=== PATIENT | female | born 1935 | race African-American/Black ===

== ENCOUNTER 2018-05-27 17:46 | Emergency (ER) | payer MEDICARE, BC ==
[~2018-05-27] VITALS: Ht 154.9 cm; Wt 49.9 kg
[~2018-05-27 17:46] MED LIST: ASPI-1169 PO; ATOR20TA PO; CALC-20 PO; CYAN500T4 PO; CYCL30DR EACHEYE; ERGO500014 PO; FEBU40TA PO; HYDR-4076 PO; LOSA50TA21 PO; LOTE5DRO3 RIGHTEYE; METO-357 PO; TRAM50TA2 PO
--- NOTE | 2018-05-27 18:25 | NUR ---
pt rec'd to er c/o pain rt knee chronic pain 06/05 family a bedsdie .AWAITING EVALUATION BY ER PROVIDER.
[2018-05-27] MEDS ORDERED: HYDROCODONE/APAP 5/325MG 1 EACH TABLET PO ONE (18:30)
--- NOTE | 2018-05-27 18:45 | NUR ---
zandra cindy duong
[2018-05-27] MEDS ORDERED: HYDROCODONE/APAP 5/325MG 1 EACH TABLET ONE (18:46)
--- NOTE | 2018-05-27 19:11 | NUR ---
REPORT RECEIVED FROM SRI VIEIRA FOR PANDA.
--- NOTE | 2018-05-27 20:07 | NUR ---
PT UP FOR DISCHARGE, FAMILY LEFT. ATTEMPTING TO GET IN TOUCH WITH FAMILY TO BUILDING ENERGY CONSULTANT PT.
[2018-05-27 22:51] VITALS: BP 134/79
== END 2018-05-27 22:53 | disposition home or self-care (01) ==
LOC: ER 17:50
DX: M25.561 Pain in right knee (principal); G89.29 Other chronic pain; M54.9 Dorsalgia, unspecified; I10 Essential (primary) hypertension; K76.9 Liver disease, unspecified; M17.9 Osteoarthritis of knee, unspecified; Z79.82 Long term (current) use of aspirin
CPT/HCPCS: 73560-TC; A4606; Z7610

== ENCOUNTER 2018-05-30 17:36 | Inpatient (IN) | payer MEDICARE, BC ==
[~2018-05-30] VITALS: Ht 152.4 cm; Wt 52.6 kg
[2018-05-30] MEDS ORDERED: LIDOCAINE HCL/PF 1% 30 ML SDV ONE (17:55)
[2018-05-30 19:27] LABS: CALCIUM, SERUM 9.4 mg/dL (8.5-10.1); CARBON DIOXIDE 25 mmol/L (21-32); CHLORIDE 102 mmol/L (98-107); CREATININE 1.4 mg/dL (0.6-1.3); GLUCOSE 98 mg/dL (74-106); POTASSIUM 3.6 mmol/L (3.5-5.1); SODIUM SERUM 136 mmol/L (136-145); UREA NITROGEN, BLOOD 32 mg/dL (7-18)
[2018-05-30 19:32] LABS: ALANINE AMINOTRANSFERASE 48 U/L (12-78); ALBUMIN 2.6 g/dL (3.4-5.0); ALKALINE PHOSPHATASE 114 U/L (46-116); ASPARTATE AMINOTRANSFERASE 58 U/L (15-37); BILIRUBIN,TOTAL 0.3 mg/dL (0.2-1.0); TOTAL PROTEIN, SERUM 7.5 g/dL (6.4-8.2)
[2018-05-30 19:51] LABS: HEMATOCRIT 31 % (33-45); HEMOGLOBIN 10.3 g/dL (11.5-14.8); LYMPHOCYTES % (AUTO) 14.8 % (20.0-44.0); MEAN CORPUSCULAR HEMOGLOBIN 30 PG (26.0-33.0); MEAN CORPUSCULAR HGB CONC 33 g/dl (31.0-36.0); MEAN CORPUSCULAR VOLUME 92 fL (82-100); MONOCYTES % (AUTO) 9.8 % (2.0-12.0); NEUTROPHILS % (AUTO) 73.6 % (43.0-81.0); PLATELET COUNT (AUTO) 410 /CMM (150-450); RDW COEFFICIENT OF VARIATION 13.3 (11.5-15.0); RED BLOOD CELL COUNT(AUTO) 3.39 MIL/uL (4.0-5.2); WHITE BLOOD COUNT (AUTO) 7.2 K/uL (4.3-11.0)
[2018-05-30 19:52] LABS: BASOPHILS # (AUTO) 0.1 /CMM (0.0-0.2); BASOPHILS % (AUTO) 0.9 % (0.0-2.0); EOSINOPHILS % (AUTO) 0.9 % (0.0-6.0); LYMPHOCYTES # (AUTO) 1.1 /CMM (0.8-4.8); MONOCYTES # (AUTO) 0.7 /CMM (0.1-1.30); NEUTROPHILS # (AUTO) 5.3 /CMM (1.8-8.9)
[2018-05-30] MEDS ORDERED: IV NS 0.9% 500 ML BAG IV ONE (20:00)
[2018-05-30] MEDS ORDERED: MAGNESIUM HYDROXIDE 30 ML UDC PO PRN (20:30)
[2018-05-30] MEDS ORDERED: ACETAMINOPHEN 325 MG TABLET PO PRN (20:30)
[2018-05-30] MEDS ORDERED: MAG HYDROX/AL HYDROX/SIMETH 30 ML UDC PO PRN (20:30)
[2018-05-30] MEDS ORDERED: ONDANSETRON HCL/PF 4 MG/2 ML VIAL IVP PRN (20:30)
[2018-05-30] MEDS ORDERED: HYDR-4077 PO (20:49)
[2018-05-30 21:39] LABS: APPEARANCE,URINE CLEAR (CLEAR); BILIRUBIN,URINE NEGATIVE (NEGATIVE); BLOOD, URINE NEGATIVE Ery/uL (NEGATIVE); COLOR,URINE YELLOW (YELLOW); KETONES,URINE NEGATIVE (NEGATIVE); LEUKOCYTE ESTERASE ,URINE NEGATIVE (NEGATIVE); NITRITE, URINE NEGATIVE (NEGATIVE); PROTEIN,URINE TRACE mg/dl (NEGATIVE); UGLUCOSE NEGATIVE (NEGATIVE); UROBILINOGEN,URINE 0.2 EU/dL (0.2)
[2018-05-30 22:00] VITALS: BP 162/93
[2018-05-30 22:05] LABS: BACTERIA,URINE Rare /HPF (None Seen); RBC,URINE 0-2 /HPF (0-2); SQUAMOUS EPITHELIAL CELL,UR 0-2 /HPF (None Seen); WBC,URINE 0-2 /HPF (0-3)
[2018-05-30 22:06] LABS: MUCUS,URINE Few /LPF (None Seen); URINE AMORPHOUS URATE Few /HPF (None Seen)
[2018-05-30 23:37] VITALS: BP 162/93
[2018-05-31] MEDS ORDERED: CEFTRIAXONE 1 G VIAL ONE (01:25)
[2018-05-31] MEDS: IV NS 0.9% 1,000 ML IV SCH ×2 (01:27→21:24)
[2018-05-31] MEDS: CEFTRIAXONE 1 G in IV NS 0.9% 50 ML IV SCH (01:40)
[2018-05-31] MEDS ORDERED: VANCOMYCIN 1 GM in IV D5W 250 ML IV SCH (04:30)
[2018-05-31] MEDS ORDERED: VANCOMYCIN 1 GM VIAL ONE (04:39)
[2018-05-31] MEDS: HYDROCODONE/APAP 5/325MG 1 EACH TABLET PO PRN ×2 (04:51→20:33)
[2018-05-31 07:03] LABS: IRON, SERUM 23 ug/dl (50-175); TOTAL IRON BINDING CAPACITY 116 ug/dl (250-450)
[2018-05-31 08:00] VITALS: BP 154/67
[2018-05-31] MEDS: CYANOCOBALAMIN 500 MCG TABLET PO SCH (08:25)
[2018-05-31] MEDS: DOCUSATE SODIUM 100 MG CAPSULE PO SCH ×2 (08:25→17:16)
[2018-05-31] MEDS: PANTOPRAZOLE 40 MG VIAL IV SCH (08:26)
[2018-05-31] MEDS: hydrALAZINE HCL 50 MG TABLET PO SCH ×3 (08:26→17:16)
[2018-05-31] MEDS: CALCIUM CARB 600MG /VIT D 1 EACH TABLET PO SCH (08:26)
[2018-05-31] MEDS: METOPROLOL SUCCINATE 50 MG TAB.SR.24H PO SCH (08:26)
[2018-05-31] MEDS: LOSARTAN POTASSIUM 50 MG TABLET PO SCH (08:26)
[2018-05-31] MEDS: TRAMADOL HCL 50 MG TABLET PO SCH ×2 (08:28→17:17)
[2018-05-31 08:31] LABS: CALCIUM, SERUM 9.1 mg/dL (8.5-10.1); CARBON DIOXIDE 22 mmol/L (21-32); CHLORIDE 105 mmol/L (98-107); CREATININE 1.3 mg/dL (0.6-1.3); GLUCOSE 136 mg/dL (74-106); POTASSIUM 3.4 mmol/L (3.5-5.1); SODIUM SERUM 137 mmol/L (136-145); UREA NITROGEN, BLOOD 22 mg/dL (7-18)
[2018-05-31] MEDS ORDERED: BRIN8DRO RIGHTEYE (08:56)
[2018-05-31] MEDS ORDERED: ZIOPTAN RIGHTEYE (08:56)
[2018-05-31] MEDS ORDERED: BRIM5DRO2 RIGHTEYE (08:56)
[2018-05-31] MEDS ORDERED: Medication Not On Formulary EA (Atorvastatin Calcium (Lipitor) 20 MG) PO SCH (09:00)
[2018-05-31] MEDS: LOTEMAX RIGHTEYE SCH (09:00)
[2018-05-31] MEDS ORDERED: Medication Not On Formulary EA (Cyclosporine (Restasis) 1 DROP) EACHEYE SCH (09:00)
[2018-05-31] MEDS ORDERED: FEE PK DOSING 1 MIN EA MC ONE (11:52)
[2018-05-31] MEDS ORDERED: POTASSIUM CHLORIDE 20 MEQ TAB.PRT.SR PO SCH (12:00)
[2018-05-31 16:00] VITALS: BP 140/73
[2018-05-31] MEDS: LACTOBACILLUS RHAMNOSUS GG 1 EACH CAP.SPRINK PO SCH (17:16)
[2018-05-31] MEDS: ASPIRIN 81 MG TAB.CHEW PO SCH (17:16)
[2018-05-31] MEDS: VANCOMYCIN 1 GM in IV D5W 250 ML IV SCH (17:19)
[2018-05-31 20:00] VITALS: BP 140/67
[2018-05-31] MEDS: SIMVASTATIN 40 MG TABLET PO SCH (22:58)
[2018-06-01] MEDS: CEFTRIAXONE 1 G in IV NS 0.9% 50 ML IV SCH (00:48)
[2018-06-01] MEDS: HYDROCODONE/APAP 5/325MG 1 EACH TABLET PO PRN (06:14)
[2018-06-01 06:29] LABS: BASOPHILS % (AUTO) 0.5 % (0.0-2.0); EOSINOPHILS % (AUTO) 2.6 % (0.0-6.0); HEMATOCRIT 30 % (33-45); HEMOGLOBIN 9.9 g/dL (11.5-14.8); LYMPHOCYTES # (AUTO) 1.1 /CMM (0.8-4.8); LYMPHOCYTES % (AUTO) 17.1 % (20.0-44.0); MEAN CORPUSCULAR HEMOGLOBIN 31 PG (26.0-33.0); MEAN CORPUSCULAR HGB CONC 33 g/dl (31.0-36.0); MEAN CORPUSCULAR VOLUME 93 fL (82-100); MONOCYTES # (AUTO) 0.7 /CMM (0.1-1.30); MONOCYTES % (AUTO) 11.2 % (2.0-12.0); NEUTROPHILS # (AUTO) 4.6 /CMM (1.8-8.9); NEUTROPHILS % (AUTO) 68.6 % (43.0-81.0); PLATELET COUNT (AUTO) 377 /CMM (150-450); RDW COEFFICIENT OF VARIATION 13.6 (11.5-15.0); RED BLOOD CELL COUNT(AUTO) 3.23 MIL/uL (4.0-5.2); WHITE BLOOD COUNT (AUTO) 6.6 K/uL (4.3-11.0)
[2018-06-01 07:04] LABS: CHOLESTEROL 128 mg/dL (<200); HDL CHOLESTEROL 37 mg/dL (40-60); LDL 76 mg/dL (0-99); THYROID STIMULATING HORMONE 2.297 uIU/mL (0.358-3.74); TRIGLYCERIDES 48 mg/dL (30-150)
[2018-06-01 07:10] LABS: CARBON DIOXIDE 22 mmol/L (21-32); CHLORIDE 106 mmol/L (98-107); CREATININE 1.1 mg/dL (0.6-1.3); GLUCOSE 89 mg/dL (74-106); MAGNESIUM 1.9 mg/dL (1.8-2.4); PHOSPHORUS 3.7 mg/dL (2.5-4.9); POTASSIUM 3.8 mmol/L (3.5-5.1); SODIUM SERUM 137 mmol/L (136-145); UREA NITROGEN, BLOOD 15 mg/dL (7-18)
[2018-06-01 08:00] VITALS: BP 130/59
[2018-06-01] MEDS: PANTOPRAZOLE 40 MG VIAL IV SCH (08:46)
[2018-06-01] MEDS: CALCIUM CARB 600MG /VIT D 1 EACH TABLET PO SCH (08:46)
[2018-06-01] MEDS: CYANOCOBALAMIN 500 MCG TABLET PO SCH (08:47)
[2018-06-01] MEDS: DOCUSATE SODIUM 100 MG CAPSULE PO SCH ×2 (08:47→18:09)
[2018-06-01] MEDS: TRAMADOL HCL 50 MG TABLET PO SCH ×2 (08:47→18:09)
[2018-06-01] MEDS: LOSARTAN POTASSIUM 50 MG TABLET PO SCH (08:47)
[2018-06-01] MEDS: LACTOBACILLUS RHAMNOSUS GG 1 EACH CAP.SPRINK PO SCH ×2 (08:47→18:08)
[2018-06-01] MEDS: METOPROLOL SUCCINATE 50 MG TAB.SR.24H PO SCH (08:48)
[2018-06-01] MEDS: hydrALAZINE HCL 50 MG TABLET PO SCH ×3 (08:48→18:08)
[2018-06-01] MEDS: LOTEMAX RIGHTEYE SCH (08:52)
[2018-06-01 16:00] VITALS: BP 134/64
[2018-06-01] MEDS: BRIMONIDINE TARTRATE RIGHTEYE SCH (18:07)
[2018-06-01] MEDS: TIMOLOL RIGHTEYE SCH (18:07)
[2018-06-01] MEDS: Brinzolamide/Brimonid Tart (Simbrinza 1%-0.2% Eye Drops) EACHEYE SCH (18:07)
[2018-06-01] MEDS: VANCOMYCIN 1 GM in IV D5W 250 ML IV SCH (18:07)
[2018-06-01] MEDS: ASPIRIN 81 MG TAB.CHEW PO SCH (18:10)
[2018-06-01 20:00] VITALS: BP 120/58
[2018-06-01] MEDS: SIMVASTATIN 40 MG TABLET PO SCH (21:45)
[2018-06-01] MEDS: IV NS 0.9% 1,000 ML IV SCH (21:47)
[2018-06-01] MEDS ORDERED: LATANOPROST EYE DROP 0.005% 2.5 ML BOTTLE RIGHTEYE SCH (22:00)
[2018-06-02] MEDS: CEFTRIAXONE 1 G in IV NS 0.9% 50 ML IV SCH (00:07)
[2018-06-02 06:54] LABS: CALCIUM, SERUM 8.8 mg/dL (8.5-10.1); CARBON DIOXIDE 21 mmol/L (21-32); CHLORIDE 107 mmol/L (98-107); CREATININE 1.3 mg/dL (0.6-1.3); GLUCOSE 91 mg/dL (74-106); POTASSIUM 3.7 mmol/L (3.5-5.1); SODIUM SERUM 137 mmol/L (136-145); UREA NITROGEN, BLOOD 11 mg/dL (7-18)
[2018-06-02 08:00] VITALS: BP 150/69
[2018-06-02] MEDS: CYANOCOBALAMIN 500 MCG TABLET PO SCH (08:04)
[2018-06-02] MEDS: TRAMADOL HCL 50 MG TABLET PO SCH ×2 (08:05→16:40)
[2018-06-02] MEDS: LACTOBACILLUS RHAMNOSUS GG 1 EACH CAP.SPRINK PO SCH ×2 (08:06→16:39)
[2018-06-02] MEDS: DOCUSATE SODIUM 100 MG CAPSULE PO SCH ×2 (08:06→16:39)
[2018-06-02] MEDS: PANTOPRAZOLE 40 MG VIAL IV SCH (08:06)
[2018-06-02] MEDS: hydrALAZINE HCL 50 MG TABLET PO SCH ×3 (08:07→16:56)
[2018-06-02] MEDS: LOSARTAN POTASSIUM 50 MG TABLET PO SCH (08:07)
[2018-06-02] MEDS: METOPROLOL SUCCINATE 50 MG TAB.SR.24H PO SCH (08:07)
[2018-06-02] MEDS: CALCIUM CARB 600MG /VIT D 1 EACH TABLET PO SCH (08:07)
[2018-06-02] MEDS: TIMOLOL RIGHTEYE SCH ×2 (08:16→16:42)
[2018-06-02] MEDS: BRIMONIDINE TARTRATE RIGHTEYE SCH ×2 (08:16→16:42)
[2018-06-02] MEDS: Brinzolamide/Brimonid Tart (Simbrinza 1%-0.2% Eye Drops) EACHEYE SCH ×3 (08:17→16:56)
[2018-06-02] MEDS: LOTEMAX RIGHTEYE SCH (08:18)
[2018-06-02] MEDS: IV NS 0.9% 1,000 ML IV SCH (11:49)
[2018-06-02 16:56] VITALS: BP 122/67
[2018-06-29] MEDS ORDERED: ERGOCALCIFEROL (VITAMIN D 2) 50,000 UNIT CAPSULE PO SCH (09:00)
== END 2018-06-02 18:27 | DRG 564 ==
LOC: ER 17:38 → MED 20:40
PROVIDERS: ADMIT Registered Nurse; ATTEND Registered Nurse
DX: M25.461 Effusion, right knee (principal); N17.0 Acute kidney failure with tubular necrosis; T76.91XA Unspecified adult maltreatment, suspected, initial encounter; E78.5 Hyperlipidemia, unspecified; G89.29 Other chronic pain; I12.9 Hypertensive chronic kidney disease with stage 1 through stage 4 chronic kidney disease, or unspecified chronic kidney disease; N18.9 Chronic kidney disease, unspecified; D63.8 Anemia in other chronic diseases classified elsewhere; D47.3 Essential (hemorrhagic) thrombocythemia; I25.10 Atherosclerotic heart disease of native coronary artery without angina pectoris; H40.9 Unspecified glaucoma; M41.9 Scoliosis, unspecified; M54.9 Dorsalgia, unspecified; R53.1 Weakness; E86.9 Volume depletion, unspecified; K76.9 Liver disease, unspecified; M17.11 Unilateral primary osteoarthritis, right knee; E87.6 Hypokalemia
CPT/HCPCS: 36415; 73700-TC; 73721-TC; 80048-TC; 80053-TC; 80061-TC; 81000-TC; 83540-TC; 83605-TC; 83735-TC; 84100-TC; 84443-TC; 84550-TC; 85025-TC; 85652-TC; 86140-TC; 87040-TC; 87070-TC; 87081-TC; 89051-TC; 89060-TC; 92611-TC; A4216; A4606; A6402; C9113; J0696; J3370; J3490; J7030; J7040; J7060; Z7610

== ENCOUNTER 2018-07-06 11:05 | Emergency (ER) | payer MEDICARE, BC ==
[~2018-07-06] VITALS: Ht 152.4 cm; Wt 50.8 kg
[~2018-07-06 11:05] MED LIST changes: +BRIM5DRO2 RIGHTEYE; +BRIN8DRO RIGHTEYE; -FEBU40TA PO; -HYDR-4076 PO; +HYDR-4077 PO; +ZIOPTAN RIGHTEYE
--- NOTE | 2018-07-06 11:25 | NUR ---
DR LOWERY AT BEDSIDE FOR EVAL.
--- NOTE | 2018-07-06 11:26 | NUR ---
PT BIB FAMILY TO ER BED 01 C/O ON AND OFF NECK AND L SIDED CHEST WALL PAIN. PER PT, PAIN IS BEEN GOING ON FOR DAYS NOW. DENIES FALL. R KNEE SWELLING NOTED. PER FAMILY PT WAS GIVEN GELSYN INJECTION LAST MONDAY. GOWNED AND PLACED ON MONITOR. VSS. AWAITING MD CALLE.
[2018-07-06 12:00] LABS: BASOPHILS # (AUTO) 0.1 /CMM (0.0-0.2); BASOPHILS % (AUTO) 0.9 % (0.0-2.0); EOSINOPHILS % (AUTO) 0.8 % (0.0-6.0); HEMATOCRIT 35 % (33-45); HEMOGLOBIN 11.5 g/dL (11.5-14.8); LYMPHOCYTES # (AUTO) 0.9 /CMM (0.8-4.8); LYMPHOCYTES % (AUTO) 8.6 % (20.0-44.0); MEAN CORPUSCULAR HEMOGLOBIN 29 PG (26.0-33.0); MEAN CORPUSCULAR HGB CONC 33 g/dl (31.0-36.0); MEAN CORPUSCULAR VOLUME 89 fL (82-100); MONOCYTES # (AUTO) 0.3 /CMM (0.1-1.30); MONOCYTES % (AUTO) 3.1 % (2.0-12.0); NEUTROPHILS # (AUTO) 8.8 /CMM (1.8-8.9); NEUTROPHILS % (AUTO) 86.6 % (43.0-81.0); PLATELET COUNT (AUTO) 497 /CMM (150-450); RDW COEFFICIENT OF VARIATION 13.4 (11.5-15.0); WHITE BLOOD COUNT (AUTO) 10.2 K/uL (4.3-11.0)
[2018-07-06 12:10] LABS: CALCIUM, SERUM 10.1 mg/dL (8.5-10.1); CARBON DIOXIDE 27 mmol/L (21-32); CHLORIDE 96 mmol/L (98-107); CREATININE 1.2 mg/dL (0.6-1.3); GLUCOSE 93 mg/dL (74-106); INR 1.02 (0.85-1.15); POTASSIUM 4.4 mmol/L (3.5-5.1); SODIUM SERUM 130 mmol/L (136-145); UREA NITROGEN, BLOOD 22 mg/dL (7-18)
[2018-07-06 12:24] LABS: ALANINE AMINOTRANSFERASE 28 U/L (12-78); ALBUMIN 2.7 g/dL (3.4-5.0); ALKALINE PHOSPHATASE 117 U/L (46-116); ASPARTATE AMINOTRANSFERASE 32 U/L (15-37); BILIRUBIN,DIRECT 0.1 mg/dL (0.0-0.2); BILIRUBIN,TOTAL 0.5 mg/dL (0.2-1.0); TOTAL PROTEIN, SERUM 8.2 g/dL (6.4-8.2)
[2018-07-06 12:28] LABS: TROPONIN I < 0.017 ng/mL (0.00-0.056)
[2018-07-06] MEDS ORDERED: ACETAMINOPHEN ES 500 MG TABLET ONE (12:49)
--- NOTE | 2018-07-06 13:23 | NUR ---
MARKED FOR D/C BACK TO [facility] BUT DAUGHTER WANTS HER TO GO SOMEWHERE ELSE. HODAN DE SANTIAGO CALLED FOR ASSISTANCE, ETA [phone]
--- NOTE | 2018-07-06 13:30 | NUR ---
LUIS ALFREDO received a call from ED CRN Silke stating that pt. is from [facility], however pt's daughter does not want pt. to go back to [facility] but wants pt. to go to [facility]. LUIS ALFREDO met with correctional case records supervisor Angie and pt's daughter to discuss change of placement. district sales manager will assist pt's daughter with possible [facility] if accepted. LUIS ALFREDO updated [facility]ouard stating that correctional case records supervisor Angie will follow up with him regarding discharge plan.
--- NOTE | 2018-07-06 16:36 | NUR ---
REPORT GIVEN TO SRI MALONEY CHARGE AT [facility].
--- NOTE | 2018-07-06 16:38 | NUR ---
WAITING FOR TRANSPORT ARRANGED BY LAMIN RV REPAIRER.
[2018-07-06 17:53] VITALS: BP 137/75
--- NOTE | 2018-07-06 17:53 | NUR ---
Patient discharged to [facility] in stable condition. Written and verbal after care instructions given. Patient verbalizes understanding of instruction.IV removed. Catheter intact and site benign. Pressure and 4x4 applied to site. No bleeding noted.
== END 2018-07-06 17:54 ==
LOC: ER 11:06
DX: M13.861 Other specified arthritis, right knee (principal); G89.29 Other chronic pain; M54.9 Dorsalgia, unspecified; M41.9 Scoliosis, unspecified; I10 Essential (primary) hypertension; E78.5 Hyperlipidemia, unspecified; Z79.82 Long term (current) use of aspirin
CPT/HCPCS: 36415; 71045; 80048; 80076; 84484; 85025; 85730; 93005; 99285; A4606; Z7610

== ENCOUNTER 2018-07-24 12:37 | Inpatient (IN) | payer MEDICARE, BC ==
[2018-07-24] VITALS (12 sets, daily range): BP systolic 95–152; BP diastolic 16–75
[~2018-07-24] VITALS: Ht 157.5 cm; Wt 55.8 kg
[2018-07-24] MEDS ORDERED: IV NS 0.9% 500 ML BAG IV ONE (13:00)
[2018-07-24] MEDS ORDERED: PANTOPRAZOLE 40 MG VIAL IV ONE (13:00)
[2018-07-24] MEDS ORDERED: IV NS 0.9% 1,000 ML BAG IV ONE (13:00)
--- NOTE | 2018-07-24 13:15 | NUR ---
[facility] FROM [facility] FOR COFFEE GROUND EMESIS AND BLACK STOOL TODAY @ 11 AM. AAOX2. VSS. DENIES CP, SOB, DIZZINESS, LIEBERMAN, N/V/D @ THIS TIME. WILL CONT TO MONITOR.
[2018-07-24 13:26] LABS: BASOPHILS # (AUTO) 0.1 /CMM (0.0-0.2); BASOPHILS % (AUTO) 0.7 % (0.0-2.0); EOSINOPHILS % (AUTO) 1.7 % (0.0-6.0); HEMATOCRIT 22 % (33-45); HEMOGLOBIN 7.3 g/dL (11.5-14.8); LYMPHOCYTES % (AUTO) 10.8 % (20.0-44.0); MEAN CORPUSCULAR HEMOGLOBIN 29 PG (26.0-33.0); MEAN CORPUSCULAR HGB CONC 33 g/dl (31.0-36.0); MEAN CORPUSCULAR VOLUME 90 fL (82-100); MONOCYTES # (AUTO) 0.3 /CMM (0.1-1.30); MONOCYTES % (AUTO) 3.7 % (2.0-12.0); NEUTROPHILS # (AUTO) 7.4 /CMM (1.8-8.9); NEUTROPHILS % (AUTO) 83.1 % (43.0-81.0); PLATELET COUNT (AUTO) 519 /CMM (150-450); RED BLOOD CELL COUNT(AUTO) 2.49 MIL/uL (4.0-5.2)
[2018-07-24 13:39] LABS: CALCIUM, SERUM 9.9 mg/dL (8.5-10.1); CARBON DIOXIDE 24 mmol/L (21-32); CHLORIDE 103 mmol/L (98-107); CREATININE 1.5 mg/dL (0.6-1.3); GLUCOSE 92 mg/dL (74-106); POTASSIUM 4.4 mmol/L (3.5-5.1); SODIUM SERUM 134 mmol/L (136-145); UREA NITROGEN, BLOOD 59 mg/dL (7-18)
[2018-07-24 13:45] LABS: ALANINE AMINOTRANSFERASE 37 U/L (12-78); ALBUMIN 2.5 g/dL (3.4-5.0); ALKALINE PHOSPHATASE 88 U/L (46-116); ASPARTATE AMINOTRANSFERASE 28 U/L (15-37); BILIRUBIN,DIRECT 0.1 mg/dL (0.0-0.2); BILIRUBIN,TOTAL 0.4 mg/dL (0.2-1.0); LIPASE 336 U/L (73-393); TOTAL PROTEIN, SERUM 6.4 g/dL (6.4-8.2)
[2018-07-24 13:46] LABS: INR 1.05 (0.85-1.15)
[2018-07-24 13:47] LABS: TROPONIN I < 0.017 ng/mL (0.00-0.056)
[2018-07-24] MEDS ORDERED: PANTOPRAZOLE 40 MG VIAL ONE (13:50)
[2018-07-24] MEDS ORDERED: IV NS 0.9% 1,000 ML IV PRN (14:40)
[2018-07-24] MEDS ORDERED: TRAM50TA2 PO (14:44)
[2018-07-24] MEDS ORDERED: MAG HYDROX/AL HYDROX/SIMETH 30 ML UDC PO PRN (15:00)
[2018-07-24] MEDS ORDERED: HYDROCODONE/APAP 5/325MG 1 EACH TABLET PO PRN (15:00)
[2018-07-24] MEDS ORDERED: MAGNESIUM HYDROXIDE 30 ML UDC PO PRN (15:00)
[2018-07-24] MEDS ORDERED: Z GUARD REMEDY 2 OZ OINT TP PRN (15:00)
--- NOTE | 2018-07-24 15:00 | NUR ---
PT STABLE, DENIES N/V/D, CP, SOB, DIZZINESS @ THIS TIME. WILL CONT TO MONITOR.
--- NOTE | 2018-07-24 16:19 | NUR ---
REPORT GIVEN TO SRI GONCALVES. PT WILL BE TRANSPORTED TO [facility] FOR CONT OF CARE.
--- NOTE | 2018-07-24 16:55 | NUR ---
SODA FOUNTAIN MANAGER ADMITTING NOTES REPORT GIVEN BY Marga MENDENHALL. PT ADMITTED TO UNIT AT 1635 VIA GURNEY ACCOMPANIED BY Marga NURSE ABDIRASHID AND PT'S DAUGHTER. TRANSFERRED PT GENTLY TO BED. PT IS A/O X2 AND RESPONSIVE TO TACTILE AND VERBAL STIMULI, NO C/O PAIN AT THIS TIME. PT AND FAMILY ORIENTED TO UNIT. PT WITH DX OF GI BLEED. V/S TAKEN AND RECORDED. PT PLACED ON 02 VIA N/C @ 2LPM, BREATHING EVEN AND UNLABORED. PT PLACED ON TELE-MONITORING WITH CURRENT READING OF SINUS RHYTHM WITH HR OF 75, NO CARDIAC DISTRESS NOTED. SKIN ASSESSMENT DONE. PT WITH INTACT WARM, DRY AND PALE SKIN. IV ACCESS ON LEFT HAND G # 18 INTACT AND PATENT. ABDOMEN SOFT,NON TENDER AND NON- DISTENDED. LUNGS ARE CLEAR ON AUSCULTATION. SAFETY MEASURES INITIATED. BED PLACED ON LOW/LOCKED POSITION WITH SIDE-RAILS UP X2. CALL LIGHT IN REACH. RECEIVED CALL FROM PHARMACY TO ASK FAMILY TO PROVIDE ALL EYE DROP MEDICATIONS THAT PT IS TAKING AND DAUGHTER SAID THAT SHE WILL GO TO THE SNF AND TAKE THEM AND BRING IT TOMORROW. WILL CONTINUE TO MONITOR AND ASSESS PT.
[2018-07-24] MEDS: hydrALAZINE HCL 50 MG TABLET PO SCH (17:00)
[2018-07-24] MEDS ORDERED: PANTOPRAZOLE 40 MG VIAL IV SCH (17:00)
[2018-07-24] MEDS ORDERED: TRAMADOL HCL 50 MG TABLET PO SCH (17:00)
[2018-07-24] MEDS: ONDANSETRON HCL/PF 4 MG/2 ML VIAL IVP PRN (17:22)
--- NOTE | 2018-07-24 17:55 | NUR ---
RN NOTES PATIENT C/O NAUSEA AND VOMITED LARGE AMOUNT FRESH BLOODY EMESIS WITH SOME SMALL CLOTS NOTED. HOB KEPT ELEVATED. ORAL CARE DONE. PROTONIX 40MG IVP AND ZOFRAN 4MG IVP ADMINISTERED. V/S TAKEN: 144/75MMHG, P 90, R 18, T 99F AND SP02 98%. PT MAINTAINED ON 02 VIA N/C AT 2LPM. ANTONIO MILLS MADE AWARE WITH ORDER TO DO STAT CBC. WILL CARRY OUT ORDER.
--- NOTE | 2018-07-24 18:50 | NUR ---
RN NOTES PT HAD BLACK COLORED STOOL, SPECIMEN COLLECTED. CALLED LABORATORY TWICE FOR STAT CBC BUT UNTIL NOW THEY HAVEN'T COME TO TAKE IT. WILL CALL AGAIN AND FOLLOW-UP.
--- NOTE | 2018-07-24 19:15 | NUR ---
SUPERVISOR STONE CLOSING NOTES PATIENT AWAKE AND LYING COMFORTABLY AT MODERATE HIGH BACKREST POSITION. ALERT AND RESPONSIVE TO TACTILE AND VERBAL STIMULI. NO FURTHER VOMITING NOTED. CREDIT INTERN JUST CAME AND WITHDRAW BLOOD FOR STAT CBC AND PICK-UP STOOL SPECIMEN. WILL ENDORSE TO [facility] SHIFT NURSE TO F/U RESULTS. PT ON 02 VIA N/C AT 2LPM, BREATHING EVEN WITH NO ACUTE RESPIRATORY DISTRESS NOTED. CARDIAC MONITORING SHOWS SR WITH HR OF 75. IVF OF NS @ 75ML/HR INFUSING TO LEFT HAND, NO S/S OF INFILTRATION NOTED. ALL SAFETY MEASURES KEPT IN PLACE. CALL LIGHT WITHIN REACH. WILL ENDORSE TO PEANUT SORTER NURSE FOR PANDA.
[2018-07-24 19:16] LABS: BASOPHILS % (AUTO) 0.3 % (0.0-2.0); EOSINOPHILS % (AUTO) 0.8 % (0.0-6.0); LYMPHOCYTES # (AUTO) 1.9 /CMM (0.8-4.8); LYMPHOCYTES % (AUTO) 15.3 % (20.0-44.0); MEAN CORPUSCULAR HEMOGLOBIN 30 PG (26.0-33.0); MEAN CORPUSCULAR HGB CONC 32 g/dl (31.0-36.0); MEAN CORPUSCULAR VOLUME 92 fL (82-100); MONOCYTES # (AUTO) 0.6 /CMM (0.1-1.30); MONOCYTES % (AUTO) 5.2 % (2.0-12.0); NEUTROPHILS # (AUTO) 9.5 /CMM (1.8-8.9); NEUTROPHILS % (AUTO) 78.4 % (43.0-81.0); PLATELET COUNT (AUTO) 386 /CMM (150-450); RDW COEFFICIENT OF VARIATION 15.1 (11.5-15.0); WHITE BLOOD COUNT (AUTO) 12.2 K/uL (4.3-11.0)
[2018-07-24 19:18] LABS: RED BLOOD CELL COUNT(AUTO) 1.62 MIL/uL (4.0-5.2)
[2018-07-24 19:21] LABS: HEMATOCRIT 15 % (33-45); HEMOGLOBIN 4.8 g/dL (11.5-14.8)
--- NOTE | 2018-07-24 19:24 | NUR ---
INSPECTOR SCREEN PRINTING INITIAL NOTES Received a call from lab that the patient has critical values of Hgb of 4.8 and Hct of 15. ANTONIO Garrido informed and came to see and assessed the patient. While in the room, patient spat out one big chunk of blood clot. V/S checked; BP- 93/63, HR- 64, RR-18, T-98.2, SPO2 of 98% at 4L via NC. ANTONIO Garrido at bedside stated that patient needs to be transferred to ICU and will make orders. Charge nurse made aware.
[2018-07-24 20:03] LABS: LYMPHOCYTES % (MANUAL) 12 % (16-48); MONOCYTES % (MANUAL) 5 % (0-11.0); NEUTROPHILS % (MANUAL) 83 (42-76)
--- NOTE | 2018-07-24 20:05 | NUR ---
RN NOTES Daughter Ashley called to obtain blood transfusion consent. Signed and witnessed with charge nurse Maggie. Called ICU and report given to charge nurse Cleopatra Moore
--- NOTE | 2018-07-24 20:50 | NUR ---
ICU/RN-RECEIVED PT. FROM 3LADORA TELE BY BED PER ACLS PROTOCOL. FOR MANAGEMENT OF GI BLEED. -4.07/11. PT. TO RECEIVED 3 UNITS OF PRBC . NURSING FOCUS:VOLUME DEFICIT R/T GI BLEED. ROUTINE ICU ADMISSION CARE INITIATED. PT. IS ASLEEP, AROUSABLE, ORIENTED TO NAME , ABLE TO ANSWER SIMPLE QUESTIONS W/ A YES OR NO. DENIES PAIN OR SIDCONMFORT. WILL MONITOR CLOSELY PER PROTOCOL. PT. IS A FULL CODE.
--- NOTE | 2018-07-24 20:50 | NUR ---
RN NOTES Patient transferred to ICU room number [id number]
--- NOTE | 2018-07-24 21:38 | NUR ---
ICU/RN-FIRST UNIT OF PRBC TRANSFUSED PER PROTOCOL. WILL CONTINUE TO MONITOR FOR S/S OF BT REACTION.
--- NOTE | 2018-07-24 22:15 | NUR ---
ICU/RN- NO ACTIVE BLEEDING NOTED AT THIS TIME, VSS. REPORT GIVEN TO SRI POTTER. WILL CONTINUE TO MONITOR PT. PER ACLS PROTOCOL.
--- NOTE | 2018-07-24 22:30 | NUR ---
RN/ICU NOTES: RECEIVED REPORT FROM CHARGE NURSE GENIE. FIRST UNIT OF PRBC GOING. PT. TOLERATED WELL.
[2018-07-24 22:33] LABS: OCCULT BLOOD STOOL POSITIVE (NEGATIVE)
[2018-07-24] MEDS ORDERED: METRONIDAZOLE 500MG/ NS 100ML 100 ML IV ONE (22:37)
[2018-07-24] MEDS ORDERED: VANCOMYCIN 1 GM VIAL ONE (22:37)
[2018-07-24] MEDS ORDERED: PIPERACILLIN /TAZOBACTAM 2.25 G VIAL IV ONE (22:38)
[2018-07-24] MEDS: METRONIDAZOLE 500MG/ NS 100ML 500 MG in PREMIX 1 EA IV SCH (22:46)
[2018-07-24] MEDS ORDERED: VANCOMYCIN 1 GM in IV D5W 250ml IV ONE (23:00)
[2018-07-25] VITALS (47 sets, daily range): BP systolic 89–169; BP diastolic 38–87
--- NOTE | 2018-07-25 00:25 | NUR ---
RN/ICU NOTES: SECOND UNIT OF BLOOD TRANSFUSION STARTED.
--- NOTE | 2018-07-25 03:30 | NUR ---
RN/ICU NOTES: 3RD AND FINAL UNIT OF BLOOD STARTED. PT. TOLERATED WELL. WILL CONTINUE TO MONITOR.
[2018-07-25] MEDS ORDERED: PIPERACILLIN /TAZOBACTAM 2.25 G VIAL IV ONE (03:55)
[2018-07-25] MEDS ORDERED: METRONIDAZOLE 500MG/ NS 100ML 100 ML IV ONE (04:44)
[2018-07-25] MEDS: METRONIDAZOLE 500MG/ NS 100ML 500 MG in PREMIX 1 EA IV SCH ×3 (04:49→21:26)
[2018-07-25] MEDS: PIPERACILLIN /TAZOBACTAM 2.25 G in IV D5W 50 ML IV SCH ×6 (05:40→23:06)
--- NOTE | 2018-07-25 06:40 | NUR ---
RN/ICU NOTES: 3 RD UNIT OF BLOOD TRANSFUSION FINISHED AND PT. TOLERATED WELL. PT. HAD X 2 EPISODES OF TARRY LOOSE STOOL.
[2018-07-25] MEDS ORDERED: FEE PK DOSING 1 MIN EA MC ONE (07:08)
--- NOTE | 2018-07-25 07:19 | NUR ---
RN/ICU NOTES: REPORT GIVEN TO NEXT SHIFT NURSE FOR PANDA.
[2018-07-25] MEDS ORDERED: ANESTHESIA TRAY IN PYXIS 1 EA TRAY MC ONE (07:33)
[2018-07-25 07:49] LABS: CALCIUM, SERUM 8.3 mg/dL (8.5-10.1); CARBON DIOXIDE 19 mmol/L (21-32); CHLORIDE 110 mmol/L (98-107); CREATININE 1.6 mg/dL (0.6-1.3); GLUCOSE 109 mg/dL (74-106); MAGNESIUM 1.8 mg/dL (1.8-2.4); PHOSPHORUS 4.8 mg/dL (2.5-4.9); POTASSIUM 4.6 mmol/L (3.5-5.1); SODIUM SERUM 140 mmol/L (136-145); UREA NITROGEN, BLOOD 76 mg/dL (7-18)
[2018-07-25 07:50] LABS: EOSINOPHILS % (AUTO) 0.2 % (0.0-6.0); HEMATOCRIT 30 % (33-45); HEMOGLOBIN 9.9 g/dL (11.5-14.8); LYMPHOCYTES # (AUTO) 1.6 /CMM (0.8-4.8); LYMPHOCYTES % (AUTO) 10.2 % (20.0-44.0); MEAN CORPUSCULAR HEMOGLOBIN 30 PG (26.0-33.0); MEAN CORPUSCULAR HGB CONC 33 g/dl (31.0-36.0); MEAN CORPUSCULAR VOLUME 91 fL (82-100); MONOCYTES # (AUTO) 0.8 /CMM (0.1-1.30); MONOCYTES % (AUTO) 5.1 % (2.0-12.0); NEUTROPHILS # (AUTO) 13.3 /CMM (1.8-8.9); NEUTROPHILS % (AUTO) 84.5 % (43.0-81.0); PLATELET COUNT (AUTO) 211 /CMM (150-450); RDW COEFFICIENT OF VARIATION 14.2 (11.5-15.0); RED BLOOD CELL COUNT(AUTO) 3.29 MIL/uL (4.0-5.2); WHITE BLOOD COUNT (AUTO) 15.8 K/uL (4.3-11.0)
[2018-07-25 07:59] LABS: CHOLESTEROL 68 mg/dL (<200); HDL CHOLESTEROL 17 mg/dL (40-60); LDL 39 mg/dL (0-99); THYROID STIMULATING HORMONE 5.249 uIU/mL (0.358-3.74); TRIGLYCERIDES 135 mg/dL (30-150)
[2018-07-25] MEDS: LOSARTAN POTASSIUM 50 MG TABLET PO SCH (10:11)
[2018-07-25] MEDS: PANTOPRAZOLE 40 MG VIAL IV SCH ×2 (10:11→17:13)
[2018-07-25] MEDS: METOPROLOL SUCCINATE 50 MG TAB.SR.24H PO SCH (10:11)
[2018-07-25] MEDS: ATORVASTATIN 10 MG TABLET PO SCH (10:12)
[2018-07-25] MEDS: hydrALAZINE HCL 50 MG TABLET PO SCH ×3 (10:12→17:00)
[2018-07-25] MEDS: CYANOCOBALAMIN 500 MCG TABLET PO SCH (10:12)
[2018-07-25] MEDS: CALCIUM CARB 600MG /VIT D 1 EACH TABLET PO SCH (10:12)
--- NOTE | 2018-07-25 10:59 | NUR ---
RN NOTE 0720: Received patient awake, feeling weak. A/Ox3, aware for the procedure. VSS. 0745: Patient transported to OR by OR nurses. VSS. 0900: Patient back from OR, A/Ox3. Per sample card maker, they did clipping on the stomach and keep HOB >45. And keep NPO for today. 1000: Cleaned patient, noted with red stool. Will continue to monitor.
[2018-07-25] MEDS: IV NS 0.9% 1,000 ML IV PRN (17:16)
[2018-07-25 18:53] LABS: EOSINOPHILS % (AUTO) 0.1 % (0.0-6.0); HEMATOCRIT 24 % (33-45); HEMOGLOBIN 7.9 g/dL (11.5-14.8); LYMPHOCYTES # (AUTO) 1.4 /CMM (0.8-4.8); LYMPHOCYTES % (AUTO) 4.9 % (20.0-44.0); MEAN CORPUSCULAR HEMOGLOBIN 30 PG (26.0-33.0); MEAN CORPUSCULAR HGB CONC 33 g/dl (31.0-36.0); MEAN CORPUSCULAR VOLUME 91 fL (82-100); MONOCYTES # (AUTO) 0.4 /CMM (0.1-1.30); MONOCYTES % (AUTO) 1.3 % (2.0-12.0); NEUTROPHILS # (AUTO) 27.3 /CMM (1.8-8.9); NEUTROPHILS % (AUTO) 93.7 % (43.0-81.0); PLATELET COUNT (AUTO) 201 /CMM (150-450); RED BLOOD CELL COUNT(AUTO) 2.62 MIL/uL (4.0-5.2); WHITE BLOOD COUNT (AUTO) 29.1 K/uL (4.3-11.0)
--- NOTE | 2018-07-25 19:30 | NUR ---
ADULT PROBATION OFFICER INITIAL NOTE RECEIVED PATIENT ASLEEP, DROWSY, AROUSABLE. NO S/S OF PAIN OR DISCOMFORT. NO RESPIRATORY DISTRESS NOTED, ON 2LPMO2 VIA NC. SKIN COOL AND DRY TO TOUCH. ON MONITOR SR. NO S/S OF BLEEDING AT THIS TIME. HOB ELEVATED. SIDE RAILS UP AND LOCKED. BED KEPT AT LOWEST POSITION. IVF RUNNING. CALL LIGHT KEPT WITHIN EASY REACH. WILL CONTINUE TO MONITOR.
--- NOTE | 2018-07-25 20:45 | NUR ---
TRACK SUPERVISOR NOTE DAUGHTER AT BEDSIDE, BROUGHT PATIENTS EYE DROPS, WILL GIVE TO PHARMACY
[2018-07-25] MEDS: ZIOPTAN RIGHTEYE SCH (21:13)
[2018-07-25] MEDS: Brimonidine Tartrate/Timolol (Combigan Eye Drops) RIGHTEYE SCH (21:13)
[2018-07-25] MEDS: Brinzolamide/Brimonid Tart (Simbrinza 1%-0.2% Eye Drops RIGHTEYE SCH (21:14)
--- NOTE | 2018-07-25 21:28 | NUR ---
DRIVER SALES NOTE ALL PINK STCK-MED ONCE CLEARED FOR PATIENTS SAFETY
[2018-07-25] MEDS: ACETAMINOPHEN 325 MG TABLET PO PRN (21:32)
[2018-07-25] MEDS: VANCOMYCIN 0.75 GM in IV D5W 250 ML IV SCH (23:06)
[2018-07-26] VITALS (32 sets, daily range): BP systolic 92–144; BP diastolic 39–93
[2018-07-26 00:26] LABS: BASOPHILS % (AUTO) 0.2 % (0.0-2.0); EOSINOPHILS % (AUTO) 0.2 % (0.0-6.0); LYMPHOCYTES # (AUTO) 1.6 /CMM (0.8-4.8); LYMPHOCYTES % (AUTO) 7.1 % (20.0-44.0); MEAN CORPUSCULAR HEMOGLOBIN 30 PG (26.0-33.0); MEAN CORPUSCULAR HGB CONC 32 g/dl (31.0-36.0); MEAN CORPUSCULAR VOLUME 93 fL (82-100); MONOCYTES # (AUTO) 0.7 /CMM (0.1-1.30); MONOCYTES % (AUTO) 3.2 % (2.0-12.0); NEUTROPHILS # (AUTO) 20.7 /CMM (1.8-8.9); NEUTROPHILS % (AUTO) 89.3 % (43.0-81.0); PLATELET COUNT (AUTO) 173 /CMM (150-450); RDW COEFFICIENT OF VARIATION 15.3 (11.5-15.0); RED BLOOD CELL COUNT(AUTO) 2.14 MIL/uL (4.0-5.2); WHITE BLOOD COUNT (AUTO) 23.2 K/uL (4.3-11.0)
[2018-07-26 00:27] LABS: HEMATOCRIT 20 % (33-45)
[2018-07-26 00:29] LABS: HEMOGLOBIN 6.4 g/dL (11.5-14.8)
--- NOTE | 2018-07-26 00:37 | NUR ---
PROFESSOR OF LITERACY NOTE RELAYED TO DR. CASTANEDA PATIENT STILL NOTED WITH BLOOD IN STOOL, STAT CBC RESULT H/H 6.03/16. WITH ORDERS TO TRANSFUSE 2 UNITS PRBC. NOTED. WILL CONTINUE TO MONITOR.
[2018-07-26 00:45] LABS: LYMPHOCYTES % (MANUAL) 4 % (16-48); MONOCYTES % (MANUAL) 2 % (0-11.0); NEUTROPHILS % (MANUAL) 94 (42-76)
[2018-07-26] MEDS: IV NS 0.9% 1,000 ML IV PRN ×2 (04:15→18:22)
[2018-07-26] MEDS: PIPERACILLIN /TAZOBACTAM 2.25 G in IV D5W 50 ML IV SCH ×4 (05:20→23:06)
--- NOTE | 2018-07-26 05:53 | NUR ---
PLASTIC SHAPER NOTE S/P 2ND UNIT PRBC TRANSFUSED WITH NO COMPLICATIONS. WILL CONTINUE TO MONITOR.
--- NOTE | 2018-07-26 06:00 | NUR ---
FUR TANNER NOTE PATIENT NOTED WITH BLACK OUTPUT IN DIAPER, URINE MIXED WITH STOOL. INFORMED DR. CASTANEDA PATIENT NON-AMBULATORY AND STILL ACTIVELY BLEEDING. WITH ORDERS, OK TO INSERT JI CATHETER, WILL CONTINUE TO MONITOR.
[2018-07-26] MEDS: METRONIDAZOLE 500MG/ NS 100ML 500 MG in PREMIX 1 EA IV SCH ×2 (06:32→13:45)
--- NOTE | 2018-07-26 07:15 | NUR ---
ICU/RN INITIAL NOTES RECEIVED PT IN BED, ALERT AND VERBALLY RESPONSIVE. ON 2LPM O2 VIA NC, TOLERATING WELL, NO SOB NOTED. WITH INTACT AND IN PLACED F/C. WITH ONGOING IVF NS AT 125ML/HR INFUSING WELL ON LWRIST G22, WITH INTACT RAC G22 SL. HOB ELEVATED. STILL NOTED WITH MELENA, SKIN COOL TO TOUCH. SAFETY MEASURES IN PLACED. WILL CONT TO MONITOR
[2018-07-26 07:16] LABS: BASOPHILS % (AUTO) 0.1 % (0.0-2.0); EOSINOPHILS % (AUTO) 0.6 % (0.0-6.0); HEMATOCRIT 33 % (33-45); HEMOGLOBIN 10.9 g/dL (11.5-14.8); LYMPHOCYTES # (AUTO) 1.6 /CMM (0.8-4.8); LYMPHOCYTES % (AUTO) 8.4 % (20.0-44.0); MEAN CORPUSCULAR HEMOGLOBIN 30 PG (26.0-33.0); MEAN CORPUSCULAR HGB CONC 33 g/dl (31.0-36.0); MEAN CORPUSCULAR VOLUME 90 fL (82-100); MONOCYTES # (AUTO) 0.4 /CMM (0.1-1.30); NEUTROPHILS # (AUTO) 16.7 /CMM (1.8-8.9); NEUTROPHILS % (AUTO) 88.9 % (43.0-81.0); PLATELET COUNT (AUTO) 120 /CMM (150-450); RDW COEFFICIENT OF VARIATION 14.8 (11.5-15.0); RED BLOOD CELL COUNT(AUTO) 3.64 MIL/uL (4.0-5.2); WHITE BLOOD COUNT (AUTO) 18.8 K/uL (4.3-11.0)
[2018-07-26 07:20] LABS: APPEARANCE,URINE CLOUDY (CLEAR); BILIRUBIN,URINE NEGATIVE (NEGATIVE); BLOOD, URINE NEGATIVE Ery/uL (NEGATIVE); COLOR,URINE YELLOW (YELLOW); KETONES,URINE NEGATIVE (NEGATIVE); LEUKOCYTE ESTERASE ,URINE 3+ (NEGATIVE); NITRITE, URINE NEGATIVE (NEGATIVE); PH,URINE 5.5 (5.0-8.0); PROTEIN,URINE NEGATIVE (NEGATIVE); UGLUCOSE NEGATIVE (NEGATIVE); UROBILINOGEN,URINE 0.2 EU/dL (0.2)
--- NOTE | 2018-07-26 07:31 | NUR ---
INGREDIENT SCALER HELPER CLOSING NOTE PATIENT STILL WITH ACTIVE BLEEDING. DENIES DIZZINESS. NO N/V. ALERT, FOLLOWS COMMANDS. NO RESPIRATORY DISTRESS NOTED, ON 2LPMO2 VIA NC. S/P 2 UNITS PRBC GIVEN, WITH NO COMPLICATIONS NOTED. F/C PATENT, INTACT, DRAINING BY GRAVITY. KEPT CLEAN AND DRY. IVF RUNNING. TURNED AND REPOSITIONED Q2 AND PRN . SIDE RAILS UP AND LOCKED. BED KEPT AT LOWEST POSITION. CALL LIGHT KEPT WITHIN EASY REACH. CONTINUITY OF CARE ENDORSED TO AM NURSE.
[2018-07-26 07:45] LABS: CALCIUM, SERUM 8.2 mg/dL (8.5-10.1); CARBON DIOXIDE 17 mmol/L (21-32); CHLORIDE 114 mmol/L (98-107); CREATININE 1.7 mg/dL (0.6-1.3); GLUCOSE 88 mg/dL (74-106); MAGNESIUM 1.6 mg/dL (1.8-2.4); PHOSPHORUS 3.6 mg/dL (2.5-4.9); POTASSIUM 3.7 mmol/L (3.5-5.1); SODIUM SERUM 143 mmol/L (136-145)
[2018-07-26 07:48] LABS: UREA NITROGEN, BLOOD 86 mg/dL (7-18)
[2018-07-26 07:54] LABS: BACTERIA,URINE Few /HPF (None Seen); RBC,URINE 0-2 /HPF (0-2); SQUAMOUS EPITHELIAL CELL,UR Moderate /HPF (None Seen); WBC,URINE TOO NUMEROUS TO COUN /HPF (0-3)
[2018-07-26] MEDS: hydrALAZINE HCL 50 MG TABLET PO SCH ×3 (08:05→17:00)
[2018-07-26] MEDS: PANTOPRAZOLE 40 MG VIAL IV SCH ×2 (08:05→18:01)
[2018-07-26] MEDS: CYANOCOBALAMIN 500 MCG TABLET PO SCH (08:05)
[2018-07-26] MEDS: ATORVASTATIN 10 MG TABLET PO SCH (08:05)
[2018-07-26] MEDS: CALCIUM CARB 600MG /VIT D 1 EACH TABLET PO SCH (08:05)
[2018-07-26] MEDS: METOPROLOL SUCCINATE 50 MG TAB.SR.24H PO SCH (08:06)
[2018-07-26] MEDS: LOSARTAN POTASSIUM 50 MG TABLET PO SCH (08:06)
[2018-07-26] MEDS: Brimonidine Tartrate/Timolol (Combigan Eye Drops) RIGHTEYE SCH ×2 (08:20→20:31)
[2018-07-26] MEDS: LOTEPREDNOL RIGHTEYE SCH (08:20)
[2018-07-26] MEDS: Brinzolamide/Brimonid Tart (Simbrinza 1%-0.2% Eye Drops RIGHTEYE SCH ×2 (08:20→20:32)
[2018-07-26] MEDS ORDERED: Magnesium 1GM/D5W 100ML PREMIX 100 ML IV SCH (09:57)
[2018-07-26 12:39] LABS: HEMATOCRIT 32 % (33-45); MEAN CORPUSCULAR HEMOGLOBIN 31 PG (26.0-33.0); MEAN CORPUSCULAR HGB CONC 34 g/dl (31.0-36.0); MEAN CORPUSCULAR VOLUME 89 fL (82-100); PLATELET COUNT (AUTO) 156 /CMM (150-450); RDW COEFFICIENT OF VARIATION 15.5 (11.5-15.0); RED BLOOD CELL COUNT(AUTO) 3.61 MIL/uL (4.0-5.2); WHITE BLOOD COUNT (AUTO) 16.1 K/uL (4.3-11.0)
[2018-07-26 13:06] LABS: BAND % (MANUAL) 1 % (0.0-5.0); LYMPHOCYTES % (MANUAL) 11 % (16-48); MONOCYTES % (MANUAL) 5 % (0-11.0); NEUTROPHILS % (MANUAL) 83 (42-76)
[2018-07-26] MEDS: ONDANSETRON HCL/PF 4 MG/2 ML VIAL IVP PRN (13:42)
[2018-07-26] MEDS ORDERED: CEPHALEXIN MONOHYDRATE 500 MG CAPSULE PO SCH (17:00)
--- NOTE | 2018-07-26 17:14 | NUR ---
RN NOTE S/E by Dr. Rose, made aware, still with episode of x2 tarry stools within the shift. With order to start on Golytely until 0500, Reglan x3 doses, and consent for EGD and colonoscopy. Spoke with Ashley via phone, given consent but wanted to talk to MD too, left message to Dr. Rose.
[2018-07-26] MEDS ORDERED: PEG 3350/NA SULF,BICARB,CL/KCL 4,000 ML BOTTLE PO ONE (18:00)
[2018-07-26] MEDS: METOCLOPRAMIDE HCL 10 MG/2 ML VIAL IV SCH ×2 (18:01→23:06)
[2018-07-26 18:22] LABS: HEMATOCRIT 33 % (33-45); HEMOGLOBIN 10.4 g/dL (11.5-14.8); LYMPHOCYTES # (AUTO) 1.5 /CMM (0.8-4.8); LYMPHOCYTES % (AUTO) 13.2 % (20.0-44.0); MEAN CORPUSCULAR HEMOGLOBIN 29 PG (26.0-33.0); MEAN CORPUSCULAR HGB CONC 32 g/dl (31.0-36.0); MEAN CORPUSCULAR VOLUME 90 fL (82-100); MONOCYTES # (AUTO) 0.6 /CMM (0.1-1.30); MONOCYTES % (AUTO) 5.3 % (2.0-12.0); NEUTROPHILS # (AUTO) 9.2 /CMM (1.8-8.9); NEUTROPHILS % (AUTO) 80.5 % (43.0-81.0); PLATELET COUNT (AUTO) 167 /CMM (150-450); RDW COEFFICIENT OF VARIATION 15.4 (11.5-15.0); RED BLOOD CELL COUNT(AUTO) 3.62 MIL/uL (4.0-5.2); WHITE BLOOD COUNT (AUTO) 11.5 K/uL (4.3-11.0)
--- NOTE | 2018-07-26 18:29 | NUR ---
RN NOTE CN is able to to talk to Dr. Rose, given the daughter's number per request. Started patient on Golytely, aware for the prep, remained complaint at this time.
--- NOTE | 2018-07-26 20:00 | NUR ---
RN NOTES RECEIVED PT AWAKE AO/3 DRINKING HER GOLYTELY. NO ACUTE RESP DISTRESS. AFEBRILE. WITH O2 2LPM VIA NC SATURATION 100% TELE MONITOR REVEALS SR. IV SITE ON LW G 22 RUNNING W/ NS @ 125 ML./HR AND RAC G 22 INTACT AND PATENT. INCONTINENT CARE RENDERED PRESENT WITH LARGE LIQUIDY AND BLACK STREAK STOOL. DENIES PAIN. COMPLIANT WITH CARE . POC PROVIDED AND IMPORTANCE OF PRE PROCEDURE FOR EGD AND COLONOSCOPY. KEPT PT CLEAN AND DRY. ALL NEEDS ATTENDED. WILL CONTINUE TO MONITOR.
[2018-07-26] MEDS: ACETAMINOPHEN 325 MG TABLET PO PRN (21:15)
[2018-07-26] MEDS: ZIOPTAN RIGHTEYE SCH (21:15)
[2018-07-26 21:25] LABS: CREATININE, URINE 27.1 MG/DL (30.0-125.0)
[2018-07-26] MEDS: VANCOMYCIN 0.75 GM in IV D5W 250 ML IV SCH (23:06)
[2018-07-27] VITALS (25 sets, daily range): BP systolic 88–156; BP diastolic 40–81
[2018-07-27 00:08] LABS: BASOPHILS % (AUTO) 0.4 % (0.0-2.0); HEMATOCRIT 27 % (33-45); LYMPHOCYTES # (AUTO) 1.2 /CMM (0.8-4.8); LYMPHOCYTES % (AUTO) 12.6 % (20.0-44.0); MEAN CORPUSCULAR HEMOGLOBIN 29 PG (26.0-33.0); MEAN CORPUSCULAR HGB CONC 33 g/dl (31.0-36.0); MEAN CORPUSCULAR VOLUME 89 fL (82-100); MONOCYTES # (AUTO) 0.6 /CMM (0.1-1.30); MONOCYTES % (AUTO) 6.3 % (2.0-12.0); NEUTROPHILS # (AUTO) 7.4 /CMM (1.8-8.9); NEUTROPHILS % (AUTO) 79.7 % (43.0-81.0); PLATELET COUNT (AUTO) 159 /CMM (150-450); RDW COEFFICIENT OF VARIATION 15.3 (11.5-15.0); RED BLOOD CELL COUNT(AUTO) 3.08 MIL/uL (4.0-5.2); WHITE BLOOD COUNT (AUTO) 9.3 K/uL (4.3-11.0)
[2018-07-27] MEDS: IV NS 0.9% 1,000 ML IV PRN (03:28)
[2018-07-27 04:35] LABS: BASOPHILS % (AUTO) 0.5 % (0.0-2.0); EOSINOPHILS % (AUTO) 1.6 % (0.0-6.0); HEMATOCRIT 28 % (33-45); HEMOGLOBIN 9.3 g/dL (11.5-14.8); LYMPHOCYTES % (AUTO) 11.6 % (20.0-44.0); MEAN CORPUSCULAR HEMOGLOBIN 30 PG (26.0-33.0); MEAN CORPUSCULAR HGB CONC 33 g/dl (31.0-36.0); MEAN CORPUSCULAR VOLUME 89 fL (82-100); MONOCYTES # (AUTO) 0.5 /CMM (0.1-1.30); MONOCYTES % (AUTO) 6.1 % (2.0-12.0); NEUTROPHILS # (AUTO) 6.8 /CMM (1.8-8.9); NEUTROPHILS % (AUTO) 80.2 % (43.0-81.0); PLATELET COUNT (AUTO) 155 /CMM (150-450); RDW COEFFICIENT OF VARIATION 15.3 (11.5-15.0); RED BLOOD CELL COUNT(AUTO) 3.15 MIL/uL (4.0-5.2); WHITE BLOOD COUNT (AUTO) 8.5 K/uL (4.3-11.0)
[2018-07-27 04:44] LABS: CALCIUM, SERUM 8.1 mg/dL (8.5-10.1); CARBON DIOXIDE 19 mmol/L (21-32); CHLORIDE 115 mmol/L (98-107); CREATININE 1.4 mg/dL (0.6-1.3); GLUCOSE 86 mg/dL (74-106); MAGNESIUM 1.8 mg/dL (1.8-2.4); PHOSPHORUS 2.8 mg/dL (2.5-4.9); POTASSIUM 3.2 mmol/L (3.5-5.1); SODIUM SERUM 144 mmol/L (136-145); UREA NITROGEN, BLOOD 48 mg/dL (7-18)
[2018-07-27] MEDS: PIPERACILLIN /TAZOBACTAM 2.25 G in IV D5W 50 ML IV SCH ×4 (05:01→23:31)
[2018-07-27] MEDS: METOCLOPRAMIDE HCL 10 MG/2 ML VIAL IV SCH (05:32)
--- NOTE | 2018-07-27 07:10 | NUR ---
RN NOTES PATIENT ASLEEP WELL ON BED. WOKE UP AND CHANGED DIAPER MORE OFTEN, MORE LIQUID STOOL WITH LITTLE STREAK OF BLOOD PRESENT. DRUNK GOLYTELY AND REMAINED COMPLIANT WITH CARE. NO SIGNIFICANT CHANGES OF CONDITION SHOWS. PT WILL HAVE EGD/COLONOSCOPY TODAY, ENDORSED CONTINUITY OF CARE TO AM NURSE.
--- NOTE | 2018-07-27 07:57 | NUR ---
INITIAL NEPHROLOGY NURSE NOTE RCVD PT AWAKE AND ALART X2 ORIENTED TO TIME. SR ON TELE ON O2 VIA NC TOLERATING WELL. JI TO GRAVITY DRAINING YELLOW URINE. RIGHT AC LEAKING IV DISCONTINUED. LEFT WRIST FLUSHING WELL. PT NPO FOR EGD/COLONOSCOPY LATER TODAY. WILL CONTINUE TO MONITOR PT FOR SAFETY AND COMFORT. CALL LIGHT WITHIN REACH. BED IN LOW AND LOCKED POSITION.
[2018-07-27] MEDS: CALCIUM CARB 600MG /VIT D 1 EACH TABLET PO SCH (08:37)
[2018-07-27] MEDS: hydrALAZINE HCL 50 MG TABLET PO SCH ×3 (08:38→16:43)
[2018-07-27] MEDS: CYANOCOBALAMIN 500 MCG TABLET PO SCH (08:38)
[2018-07-27] MEDS: METOPROLOL SUCCINATE 50 MG TAB.SR.24H PO SCH (08:38)
[2018-07-27] MEDS: PANTOPRAZOLE 40 MG VIAL IV SCH ×2 (08:38→16:43)
[2018-07-27] MEDS: ATORVASTATIN 10 MG TABLET PO SCH (08:38)
[2018-07-27] MEDS: Brinzolamide/Brimonid Tart (Simbrinza 1%-0.2% Eye Drops RIGHTEYE SCH ×2 (08:39→20:28)
[2018-07-27] MEDS: Brimonidine Tartrate/Timolol (Combigan Eye Drops) RIGHTEYE SCH ×2 (08:39→20:29)
[2018-07-27] MEDS: LOTEPREDNOL RIGHTEYE SCH (08:39)
--- NOTE | 2018-07-27 11:02 | NUR ---
ORDER EDITOR NOTE DR. RUTLEDGE IN UNIT REQUESTED THAT PT FINISHED THE REMAINING GOLYTELY DESPITE HAVING CLEAR STOOLS AT THIS TIME. PROCEDURE TENTATIVELY SCHEDULED FOR 1500. NO S/O BLEEDING OBSERVED IN STOOL. WILL CONTINUE TO MONITOR. ANTONIO LUJAN IN UNIT UPDATED ON PT'S CONDITION AND DR. RUTLEDGE'S PLAN OF CARE. VITAL SIGNS REMAIN STABLE.
[2018-07-27] MEDS ORDERED: POTASSIUM CL. PREMIX PERIPHER. 50 ML IV SCH (12:00)
[2018-07-27] MEDS: Potassium Chloride 40 MEQ in IV NS 0.9% 1,000 ML IV PRN (12:06)
[2018-07-27 12:22] LABS: BASOPHILS # (AUTO) 0.1 /CMM (0.0-0.2); BASOPHILS % (AUTO) 0.9 % (0.0-2.0); EOSINOPHILS % (AUTO) 2.2 % (0.0-6.0); HEMATOCRIT 31 % (33-45); HEMOGLOBIN 10.1 g/dL (11.5-14.8); LYMPHOCYTES % (AUTO) 11.5 % (20.0-44.0); MEAN CORPUSCULAR HEMOGLOBIN 29 PG (26.0-33.0); MEAN CORPUSCULAR HGB CONC 32 g/dl (31.0-36.0); MEAN CORPUSCULAR VOLUME 90 fL (82-100); MONOCYTES # (AUTO) 0.5 /CMM (0.1-1.30); NEUTROPHILS # (AUTO) 6.6 /CMM (1.8-8.9); NEUTROPHILS % (AUTO) 79.4 % (43.0-81.0); PLATELET COUNT (AUTO) 179 /CMM (150-450); RDW COEFFICIENT OF VARIATION 15.4 (11.5-15.0); RED BLOOD CELL COUNT(AUTO) 3.49 MIL/uL (4.0-5.2); WHITE BLOOD COUNT (AUTO) 8.3 K/uL (4.3-11.0)
[2018-07-27] MEDS ORDERED: FENTANYL PF 100MCG/2ML AMPUL ONE (14:33)
[2018-07-27] MEDS ORDERED: MIDAZOLAM HCL 2 MG/2ML VIAL ONE (14:34)
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
--- NOTE | 2018-07-27 18:58 | NUR ---
PACK PULLER NOTE PT REMAINS STABLE, SR ON TELE. ON RA TOLERATING WELL. JI TO GRAVITY DRAINING YELLOW URINE. LEFT WRIST C/D/I/PATENT. NO S/O INFILTRATION/PHLEBITIS OBSERVED IVF INFUSING ORDERED. PER DR. RUTLEDGE PT STARTED ON CLEAR LIQUIDS. PT HAS POOR APPETITE AT THIS TIME. NO EGD/COLONOSCOPY RECOMMENDED AT THIS TIME SINCE PT'S H/H HAS STABILIZED AND THERE ARE NO S/O BLEEDING. WILL CONTINUE TO MONITOR PT FOR SAFETY AND COMFORT. CALL LIGHT WITHIN REACH. BED IN LOW AND LOCKED POSITION.
[2018-07-27] MEDS: ZIOPTAN RIGHTEYE SCH (22:15)
[2018-07-28] VITALS (18 sets, daily range): BP systolic 125–184; BP diastolic 63–121
[2018-07-28 01:19] LABS: BASOPHILS % (AUTO) 0.4 % (0.0-2.0); EOSINOPHILS % (AUTO) 3.2 % (0.0-6.0); HEMATOCRIT 31 % (33-45); LYMPHOCYTES # (AUTO) 0.9 /CMM (0.8-4.8); LYMPHOCYTES % (AUTO) 12.9 % (20.0-44.0); MEAN CORPUSCULAR HEMOGLOBIN 29 PG (26.0-33.0); MEAN CORPUSCULAR HGB CONC 32 g/dl (31.0-36.0); MEAN CORPUSCULAR VOLUME 90 fL (82-100); MONOCYTES # (AUTO) 0.5 /CMM (0.1-1.30); MONOCYTES % (AUTO) 6.9 % (2.0-12.0); NEUTROPHILS # (AUTO) 5.6 /CMM (1.8-8.9); NEUTROPHILS % (AUTO) 76.6 % (43.0-81.0); PLATELET COUNT (AUTO) 220 /CMM (150-450); RDW COEFFICIENT OF VARIATION 15.9 (11.5-15.0); RED BLOOD CELL COUNT(AUTO) 3.47 MIL/uL (4.0-5.2); WHITE BLOOD COUNT (AUTO) 7.3 K/uL (4.3-11.0)
[2018-07-28] MEDS: Potassium Chloride 40 MEQ in IV NS 0.9% 1,000 ML IV PRN (03:06)
[2018-07-28 05:10] LABS: BASOPHILS # (AUTO) 0.1 /CMM (0.0-0.2); BASOPHILS % (AUTO) 0.7 % (0.0-2.0); EOSINOPHILS % (AUTO) 2.8 % (0.0-6.0); HEMATOCRIT 32 % (33-45); HEMOGLOBIN 10.2 g/dL (11.5-14.8); LYMPHOCYTES # (AUTO) 0.8 /CMM (0.8-4.8); LYMPHOCYTES % (AUTO) 9.4 % (20.0-44.0); MEAN CORPUSCULAR HEMOGLOBIN 29 PG (26.0-33.0); MEAN CORPUSCULAR HGB CONC 32 g/dl (31.0-36.0); MEAN CORPUSCULAR VOLUME 91 fL (82-100); MONOCYTES # (AUTO) 0.4 /CMM (0.1-1.30); MONOCYTES % (AUTO) 5.4 % (2.0-12.0); NEUTROPHILS # (AUTO) 6.6 /CMM (1.8-8.9); NEUTROPHILS % (AUTO) 81.7 % (43.0-81.0); PLATELET COUNT (AUTO) 213 /CMM (150-450); RDW COEFFICIENT OF VARIATION 15.6 (11.5-15.0); RED BLOOD CELL COUNT(AUTO) 3.48 MIL/uL (4.0-5.2); WHITE BLOOD COUNT (AUTO) 8.1 K/uL (4.3-11.0)
[2018-07-28] MEDS: PIPERACILLIN /TAZOBACTAM 2.25 G in IV D5W 50 ML IV SCH ×3 (05:15→17:09)
[2018-07-28 05:31] LABS: CALCIUM, SERUM 8.5 mg/dL (8.5-10.1); CARBON DIOXIDE 15 mmol/L (21-32); CHLORIDE 115 mmol/L (98-107); CREATININE 1.2 mg/dL (0.6-1.3); GLUCOSE 82 mg/dL (74-106); MAGNESIUM 1.6 mg/dL (1.8-2.4); PHOSPHORUS 2.6 mg/dL (2.5-4.9); POTASSIUM 3.9 mmol/L (3.5-5.1); SODIUM SERUM 142 mmol/L (136-145); UREA NITROGEN, BLOOD 23 mg/dL (7-18)
[2018-07-28] MEDS: PANTOPRAZOLE 40 MG VIAL IV SCH ×2 (09:13→17:09)
[2018-07-28] MEDS: CYANOCOBALAMIN 500 MCG TABLET PO SCH (09:14)
[2018-07-28] MEDS: hydrALAZINE HCL 50 MG TABLET PO SCH ×3 (09:14→17:00)
[2018-07-28] MEDS: METOPROLOL SUCCINATE 50 MG TAB.SR.24H PO SCH (09:14)
[2018-07-28] MEDS: CALCIUM CARB 600MG /VIT D 1 EACH TABLET PO SCH (09:14)
[2018-07-28] MEDS: ATORVASTATIN 10 MG TABLET PO SCH (09:14)
[2018-07-28] MEDS: Brimonidine Tartrate/Timolol (Combigan Eye Drops) RIGHTEYE SCH ×2 (09:15→22:15)
[2018-07-28] MEDS: LOTEPREDNOL RIGHTEYE SCH ×2 (09:15→22:18)
[2018-07-28] MEDS: Brinzolamide/Brimonid Tart (Simbrinza 1%-0.2% Eye Drops RIGHTEYE SCH ×2 (09:15→22:17)
[2018-07-28] MEDS: Magnesium 1GM/D5W 100ML PREMIX 100 ML IV SCH ×2 (09:33→11:02)
--- NOTE | 2018-07-28 15:00 | NUR ---
RN NOTES PT WAS BROUGHT ONTO UNIT IN STABLE CONDITION. PT ON RA, RESPIRATIONS ARE EVEN AND UNLABORED. IV ON L HAND INTACT AND RUNNING NS +KCL 40MEQ @ 85ML/HR. JI CATHETER IS IN PLACE AND DRAINING TO GRAVITY. NO SIGNS OF DISTRESS NOTED. SAFETY MEASURES ARE IN PLACE, CALL LIGHT IS IN REACH. WILL CONTINUE TO MONITOR.
--- NOTE | 2018-07-28 18:35 | NUR ---
RN NOTES PT IS SITTING UP IN BED, AWAKE AND RESTING COMFORTABLY. PT ON RA, RESPIRATIONS ARE EVEN AND UNLABORED. IV ON L HAND INTACT AND RUNNING NS +KCL 40MEQ @ 85ML/HR. JI CATHETER IS IN PLACE AND DRAINING TO GRAVITY. NO SIGNS OF DISTRESS NOTED. SAFETY MEASURES ARE IN PLACE, CALL LIGHT IS IN REACH. WILL ENDORSE TO PIPE BENDING MACHINE OPERATOR RN FOR CONTINUITY OF CARE.
--- NOTE | 2018-07-28 19:30 | NUR ---
MS/RN RECEIVE PATIENT AWAKE, CONFUSED. UNABLE TO ANSWER QUESTIONS APPROPRIATELY, APPEAR COMFORTABLE, NO SIGNS OF DISTRESS NOTED, FALL PRECAUTIONS IN PLACE PER PROTOCOL, IVF INFUSING WELL, WILL MONITOR.
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
[2018-07-28] MEDS: ZIOPTAN RIGHTEYE SCH (22:00)
[2018-07-29] MEDS: PIPERACILLIN /TAZOBACTAM 2.25 G in IV D5W 50 ML IV SCH ×4 (00:03→17:05)
[2018-07-29] MEDS: Potassium Chloride 40 MEQ in IV NS 0.9% 1,000 ML IV PRN (00:07)
[2018-07-29 06:44] LABS: BASOPHILS % (AUTO) 0.1 % (0.0-2.0); EOSINOPHILS % (AUTO) 3.6 % (0.0-6.0); HEMATOCRIT 33 % (33-45); HEMOGLOBIN 10.6 g/dL (11.5-14.8); LYMPHOCYTES # (AUTO) 0.7 /CMM (0.8-4.8); LYMPHOCYTES % (AUTO) 8.1 % (20.0-44.0); MEAN CORPUSCULAR HEMOGLOBIN 29 PG (26.0-33.0); MEAN CORPUSCULAR HGB CONC 32 g/dl (31.0-36.0); MEAN CORPUSCULAR VOLUME 91 fL (82-100); MONOCYTES # (AUTO) 0.4 /CMM (0.1-1.30); MONOCYTES % (AUTO) 5.2 % (2.0-12.0); PLATELET COUNT (AUTO) 259 /CMM (150-450); RDW COEFFICIENT OF VARIATION 15.6 (11.5-15.0); RED BLOOD CELL COUNT(AUTO) 3.61 MIL/uL (4.0-5.2); WHITE BLOOD COUNT (AUTO) 8.4 K/uL (4.3-11.0)
--- NOTE | 2018-07-29 06:44 | NUR ---
MS/RN PATIENT IS AWAKE, COMFORTABLE, NO DISTRESS NOTED, ALL NEEDS ATTENDED AT THIS TIME. WILL CONTINUE TO MONITOR.
[2018-07-29 06:55] LABS: CALCIUM, SERUM 8.7 mg/dL (8.5-10.1); CARBON DIOXIDE 19 mmol/L (21-32); CHLORIDE 111 mmol/L (98-107); CREATININE 1.1 mg/dL (0.6-1.3); GLUCOSE 85 mg/dL (74-106); MAGNESIUM 1.9 mg/dL (1.8-2.4); PHOSPHORUS 2.8 mg/dL (2.5-4.9); POTASSIUM 3.9 mmol/L (3.5-5.1); SODIUM SERUM 142 mmol/L (136-145); UREA NITROGEN, BLOOD 13 mg/dL (7-18)
--- NOTE | 2018-07-29 07:10 | NUR ---
ms rn initial notes Received patient in bed, asleep, head of bed elevated, no SOB or distress noted, on room air and tolerated well. Patient is confused. patterson in placed attached to drainage bag. IV intact and patent with IVF infusing well. Call light with in patient reach, will continue to monitor accordingly.
[2018-07-29 08:00] VITALS: BP 166/90
[2018-07-29] MEDS: PANTOPRAZOLE 40 MG VIAL IV SCH ×2 (08:48→16:16)
[2018-07-29] MEDS: ATORVASTATIN 10 MG TABLET PO SCH (08:49)
[2018-07-29] MEDS: CALCIUM CARB 600MG /VIT D 1 EACH TABLET PO SCH (08:49)
[2018-07-29] MEDS: CYANOCOBALAMIN 500 MCG TABLET PO SCH (08:49)
[2018-07-29] MEDS: hydrALAZINE HCL 50 MG TABLET PO SCH ×3 (08:49→16:18)
[2018-07-29] MEDS: METOPROLOL SUCCINATE 50 MG TAB.SR.24H PO SCH (08:49)
[2018-07-29] MEDS: Brimonidine Tartrate/Timolol (Combigan Eye Drops) RIGHTEYE SCH (08:50)
[2018-07-29] MEDS: Brinzolamide/Brimonid Tart (Simbrinza 1%-0.2% Eye Drops RIGHTEYE SCH (08:51)
[2018-07-29] MEDS ORDERED: PANT40TA2 PO ×2 (12:38→13:23)
[2018-07-29 16:00] VITALS: BP 129/67
[2018-07-29 16:18] VITALS: BP 155/72
[2018-07-29] MEDS ORDERED: NYSTATIN/TRIAMCIN CREAM 15 GM TUBE TP SCH (17:00)
--- NOTE | 2018-07-29 17:13 | NUR ---
ms internal control specialist notes Discharge instructions not given to patient due to patient is confused. Called [facility] and spoke to Nati and report given. Last dose of IV ATB given here. Discontinued IV and pressured applied to prevent bleeding. Flu is out of season. PNA is refused. Pictures taken and filed in the chart. Ambulance came to pickling tank operator the patient. Patient left in stable condition accompanied by 2 EMT's. No complaint of pain or discomfort noted, nor chest pain. Discharge paper and belonging list signed by 2 nurses due to patient unable to sign. Vital signs checked and recorded, MD and charge nurse aware of the discharge.
[2018-07-30] MEDS ORDERED: ERGOCALCIFEROL (VITAMIN D 2) 50,000 UNIT CAPSULE PO SCH (15:00)
== END 2018-07-29 17:10 | DRG 377 ==
LOC: ER 12:40 → TELE 15:21 → ICU 20:50 → TELE 07-28 16:46 → MED 07-28 20:24
PROVIDERS: ADMIT Registered Nurse; ATTEND Registered Nurse
PROC: 30233N1 Transfusion of Nonautologous Red Blood Cells into Peripheral Vein, Percutaneous Approach (ICD-10-PCS; 2018-07-24)
PROC: 3E0G8GC Introduction of Other Therapeutic Substance into Upper GI, Via Natural or Artificial Opening Endoscopic (ICD-10-PCS; 2018-07-25)
PROC: 0W3P8ZZ Control Bleeding in Gastrointestinal Tract, Via Natural or Artificial Opening Endoscopic (ICD-10-PCS; principal; 2018-07-25 07:30)
DX: K31.82 Dieulafoy lesion (hemorrhagic) of stomach and duodenum (principal); N17.0 Acute kidney failure with tubular necrosis; E87.1 Hypo-osmolality and hyponatremia; N39.0 Urinary tract infection, site not specified; D62 Acute posthemorrhagic anemia; E86.0 Dehydration; D69.6 Thrombocytopenia, unspecified; E78.5 Hyperlipidemia, unspecified; F03.90 Unspecified dementia, unspecified severity, without behavioral disturbance, psychotic disturbance, mood disturbance, and anxiety; I12.9 Hypertensive chronic kidney disease with stage 1 through stage 4 chronic kidney disease, or unspecified chronic kidney disease; I25.10 Atherosclerotic heart disease of native coronary artery without angina pectoris; Z87.891 Personal history of nicotine dependence; M19.90 Unspecified osteoarthritis, unspecified site; D72.829 Elevated white blood cell count, unspecified; K44.9 Diaphragmatic hernia without obstruction or gangrene; Z79.1 Long term (current) use of non-steroidal anti-inflammatories (NSAID); N18.2 Chronic kidney disease, stage 2 (mild); H40.9 Unspecified glaucoma; K57.30 Diverticulosis of large intestine without perforation or abscess without bleeding; E86.1 Hypovolemia; K62.89 Other specified diseases of anus and rectum; L30.4 Erythema intertrigo; D50.0 Iron deficiency anemia secondary to blood loss (chronic)
CPT/HCPCS: 36415; 71045-TC; 80048-TC; 80061-TC; 80076-TC; 80202-TC; 81000-TC; 82272-TC; 82570-TC; 82962-TC; 83605-TC; 83690-TC; 83735-TC; 84100-TC; 84300-TC; 84439-TC; 84443-TC; 84484-TC; 85025-TC; 85730-TC; 86850-TC; 86921-TC; 87040-TC; 87081-TC; 87086-TC; A4216; A4606; C9113; J2250; J2405; J2543; J2704; J2765; J3010; J3370; J3475; J3480; J3490; J7030; J7040; J7050; J7060; P9016-BL; Z7610